=== PATIENT | male | born 1975 | race Two or more races ===

== ENCOUNTER 2022-03-15 13:56 | Emergency (ER) | payer OTHER ==
[~2022-03-15] VITALS: Ht 180.3 cm; Wt 90.7 kg
[2022-03-15] MEDS ORDERED: IBUPROFEN 600 MG TABLET ONE (15:30)
[2022-03-15] MEDS ORDERED: IBUPROFEN 600 MG TABLET PO ONE (15:30)
[2022-03-15] MEDS ORDERED: CYCL10TA9 PO ×2 (15:44→16:08)
[2022-03-15] MEDS ORDERED: IBUP-1955 PO ×2 (15:44→16:08)
[2022-03-15 16:18] VITALS: BP 132/68
== END 2022-03-15 16:22 | disposition home or self-care (01) ==
LOC: ER 13:58
DX: R42 Dizziness and giddiness (principal); S00.81XA Abrasion of other part of head, initial encounter; M79.10 Myalgia, unspecified site; Z60.2 Problems related to living alone; V32.5XXA Driver of three-wheeled motor vehicle injured in collision with two- or three-wheeled motor vehicle in traffic accident, initial encounter; Y93.89 Activity, other specified; Y92.89 Other specified places as the place of occurrence of the external cause; Y99.8 Other external cause status
CPT/HCPCS: 99283; A6403